=== PATIENT | male | born 1970 | race Caucasian/White ===

== ENCOUNTER 2017-11-19 14:33 | Emergency (ER) | payer SELFPAY ==
--- NOTE | 2017-11-19 14:54 | EDM.PDOC ---
ED HPI GENERAL MEDICAL PROBLEM - General Chief Complaint: Back Pain or Injury Stated Complaint: BACK PAIN Time Seen by Provider: 11/19/17 14:48 - History of Present Illness INITIAL COMMENTS - FREE TEXT/NARRATIVE: HISTORY AND PHYSICAL: History of present illness: Patient 47-year-old male presents status post fall off skateboard injuring his right elbow and lower back he denies numbness weakness incontinence or retention bowel or bladder denies head or neck pain or trauma or other concern Review of systems: As per history of present illness and below otherwise all systems reviewed and negative. Past medical history: As per history of present illness and as reviewed below otherwise noncontributory. Surgical history: As per history of present illness and as reviewed below otherwise noncontributory. Social history: No reported history of drug or alcohol abuse. Family history: As per history of present illness and as reviewed below otherwise noncontributory. Physical exam: HEENT: Atraumatic, normocephalic, pupils reactive, negative for conjunctival pallor or scleral icterus, mucous membranes moist, throat clear, neck supple, nontender, trachea midline. Lungs: Clear to auscultation, breath sounds equal bilaterally, chest nontender. Heart: S1S2, regular, negative for clicks, rubs, or JVD. Abdomen: Soft, nondistended, nontender. Negative for masses or hepatosplenomegaly. Negative for costovertebral tenderness. Pelvis: Stable nontender. Genitourinary: Deferred. Rectal: Deferred. Extremities: Right elbow has some minor swelling and abrasion noted is full range of motion is no point tenderness or crepitation CMS neurovascular is unremarkable Neuro: Awake, alert, oriented. Cranial nerves II through XII unremarkable. Cerebellum unremarkable. Motor and sensory unremarkable throughout. Exam nonfocal. Back is without vertebral body or point tenderness is able stand on his toes back and feels motor and sensory are normal as are deep tendon reflexes Diagnostics: X-ray right elbow x-ray or spine Therapeutics: Impression: #1 acute right elbow injury (see abrasion/contusion) #2 lumbar contusion/strain Definitive disposition and diagnosis as appropriate pending reevaluation and review of above. low back & R elbow Pain Score (Numeric/FACES): 10 - Related Data Allergies Allergy/AdvReac Type Severity Reaction Status Date / Time No Known Allergies Allergy Verified 11/19/17 14:46 Home Meds: Home Meds . [No Known Home Meds] 11/19/17 [History] Past Medical History - Past Health History Medical/Surgical History: Denies Medical/Surgical History - Past Surgical History Musculoskeletal Surgical History: Reports: Other (See Below) Other Musculoskeletal Surgeries/Procedures:: Right Shoulder Social & Family History - Family History Family Medical History: Noncontributory - Tobacco Use Smoking Status *Q: Current Every Day Smoker Years of Tobacco use: 10 Packs/Tins Daily: 0.5 - Alcohol Use Days Per Week of Alcohol Use: 7 Number of Drinks Per Day: 4 Total Drinks Per Week: 28 - Recreational Drug Use Recreational Drug Use: No ED ROS GENERAL - Review of Systems Review Of Systems: ROS reveals no pertinent complaints other than HPI. ED EXAM, GENERAL - Physical Exam Exam: See Below (See dictation) Course - Vital Signs Last Recorded V/S: Last Vital Signs Temp 36.3 C 11/19/17 14:44 Pulse 82 11/19/17 14:44 Resp 16 11/19/17 14:44 BP 109/61 11/19/17 14:44 Pulse Ox 96 11/19/17 14:44 - Orders/Labs/Meds Orders: Active Orders 24 hr Category Date Time Status Elbow Min 3V Rt [CR] Stat Exams 11/19/17 14:49 Ordered Lumbar Spine 2 or 3V [CR] Stat Exams 11/19/17 14:49 Ordered Departure - Departure Time of Disposition: 14:53 Disposition: Home, Self-Care 01 Condition: Good Clinical Impression: Contusion, Elbow injury - Discharge Information Referrals: PCP,None [Primary Care Provider] - Additional Instructions: The following information is given to patients seen in the emergency department who are being discharged to home. This information is to outline your options for follow-up care. We provide all patients seen in our emergency department with a follow-up referral. The need for follow-up, as well as the timing and circumstances, are variable depending upon the specifics of your emergency department visit. If you don't have a primary care physician on staff, we will provide you with a referral. We always advise you to contact your personal physician following an emergency department visit to inform them of the circumstance of the visit and for follow-up with them and/or the need for any referrals to a consulting specialist. The emergency department will also refer you to a specialist when appropriate. This referral assures that you have the opportunity for followup care with a specialist. All of these measure are taken in an effort to provide you with optimal care, which includes your followup. Under all circumstances we always encourage you to contact your private physician who remains a resource for coordinating your care. When calling for followup care, please make the office aware that this follow-up is from your recent emergency room visit. If for any reason you are refused follow-up, please contact the [facility] emergency department at and asked to speak to the emergency department charge nurse. Motrin as prescribed follow-up primary medical doctor as needed as discussed and return as needed as discussed - My Orders Last 24 Hours: My Active Orders 11/19/17 14:49 Elbow Min 3V Rt [CR] Stat Lumbar Spine 2 or 3V [CR] Stat - Assessment/Plan Last 24 Hours: My Active Orders 11/19/17 14:49 Elbow Min 3V Rt [CR] Stat Lumbar Spine 2 or 3V [CR] Stat
--- NOTE | 2017-11-21 11:41 | CR ---
EXAM DATE: 11/19/17 PATIENT'S AGE: 47 Patient: CONI CAROLINA Facility: [place], [place] Site . Site : 1970 Study: XRay Spine Lumbar [id number]/21/2018 3:17:09 PM Ordering Physician: Monika Stockton Final Report: INDICATION: Pain. TECHNIQUE: Three views lumbar spine. FINDINGS: No acute fracture or subluxation in lumbar spine. Mild anterior wedging L1 vertebral body. Mild interspace narrowing L5, L1, and T12. Moderate degenerative changes in the lumbar spine. Remainder negative. Dictated by Yo Land MD @ Nov 19 2017 3:26PM (Electronic Signature) Report Signed by Proxy. SWETHA
--- NOTE | 2017-11-21 11:42 | CR ---
EXAM DATE: 11/19/17 PATIENT'S AGE: 47 Patient: CONI CAROLINA Facility: [place], [place] Site . Site : 1970 Study: XRay Extremity Right elbow [id number]/21/2018 3:18:43 PM Ordering Physician: Monika Stockton Final Report: INDICATION: Trauma. Pain. FINDINGS: Three views of the right elbow were obtained. There is no fracture identified or dislocation. There is no posterior fat pad sign seen. IMPRESSION: No acute bone abnormality. Dictated by Ryan Walker MD @ 11/19/2017 3:29:15 PM Dictated by: Ryan Walker MD @ 11/19/2017 15:29:22 (Electronic Signature) Report Signed by Proxy. SWETHA
== END 2017-11-19 16:06 | disposition home or self-care (01) ==
LOC: MW.ED 14:33
DX: S30.0XXA Contusion of lower back and pelvis, initial encounter (principal); S50.311A Abrasion of right elbow, initial encounter; F17.210 Nicotine dependence, cigarettes, uncomplicated; V00.131A Fall from skateboard, initial encounter
CPT/HCPCS: 72100; 73080; 99283; A4566